=== PATIENT | female | born 1960 | race Native Hawaiian/Other Pacific Islander ===

== ENCOUNTER 2017-04-20 13:02 | Emergency (ER) | payer OTHER ==
[~2017-04-20] VITALS: Ht 165.1 cm; Wt 77.1 kg
[2017-04-20 13:42] LABS: POTASSIUM 3.8 mmol/L (3.6-5.2); SODIUM 135 mmol/L (136-145)
[2017-04-20 13:46] LABS: PLATELET COUNT 329 K/uL (152-353)
[2017-04-20 19:31] VITALS: BP 139/71; TEMP 98.4
== END 2017-04-20 19:30 | disposition home or self-care (01) ==
LOC: ED 13:02
DX: K21.0 Gastro-esophageal reflux disease with esophagitis (principal)
CPT/HCPCS: 36415; 80053; 82150; 83690; 85027; 99283

== ENCOUNTER 2018-08-22 12:49 | Emergency (ER) | payer OTHER ==
[~2018-08-22] VITALS: Ht 165.1 cm; Wt 80.7 kg
[2018-08-22 13:00] VITALS: BP 109/70; TEMP 98.1
== END 2018-08-22 14:32 | disposition home or self-care (01) ==
LOC: ED 12:49
DX: T63.391A Toxic effect of venom of other spider, accidental (unintentional), initial encounter (principal); Y92.89 Other specified places as the place of occurrence of the external cause
CPT/HCPCS: 90471; 90715; 96372; 99283; J2930

== ENCOUNTER 2018-08-29 09:47 | Outpatient (CLI) | payer OTHER | END 2018-08-29 23:40 | disposition home or self-care (01) | LOC: RESP 09:47 → RAD 09:47 → RESP 10:00 | DX: R06.02 Shortness of breath (principal) | CPT/HCPCS: 94664 ==

== ENCOUNTER 2018-08-31 11:32 | Emergency (ER) | payer OTHER ==
[~2018-08-31] VITALS: Ht 165.1 cm; Wt 77.1 kg
[2018-08-31 12:32] LABS: PLATELET COUNT 340 K/uL (152-353)
[2018-08-31 12:39] LABS: POTASSIUM 4.2 mmol/L (3.6-5.2)
[2018-08-31 16:05] VITALS: BP 106/59; TEMP 98.7
== END 2018-08-31 16:05 | disposition home or self-care (01) ==
LOC: ED 11:32
PROVIDERS: Family Medicine
DX: J06.9 Acute upper respiratory infection, unspecified (principal)
CPT/HCPCS: 36415; 80053; 81000; 85027; 96365; 99284; J0696

== ENCOUNTER 2018-10-06 10:17 | Outpatient (CLI) | payer OTHER | END 2018-10-06 19:40 | disposition home or self-care (01) | LOC: US 10:17 | DX: R10.11 Right upper quadrant pain (principal) ==

== ENCOUNTER 2018-11-20 09:43 | Outpatient (CLI) | payer OTHER | END 2018-11-20 22:58 | disposition home or self-care (01) | LOC: CT 09:43 | DX: R14.0 Abdominal distension (gaseous) (principal) | CPT/HCPCS: 36415; 82565; 84520; Q9963 ==

== ENCOUNTER 2019-01-02 07:17 | Day surgery (SDC) | payer OTHER ==
[~2019-01-02] VITALS: Ht 154.9 cm; Wt 68.0 kg
[2019-01-02 08:42] LABS: PLATELET COUNT 335 K/uL (152-353)
[2019-01-02 08:52] LABS: POTASSIUM 5.4 mmol/L (3.6-5.2)
== END 2019-01-02 11:07 | disposition home or self-care (01) ==
LOC: OR 07:17
PROVIDERS: Student in an Organized Health Care Education/Training Program
PROC: 0DBN8ZZ Excision of Sigmoid Colon, Via Natural or Artificial Opening Endoscopic (ICD-10-PCS; principal; 2019-01-02)
DX: K63.5 Polyp of colon (principal); Z12.11 Encounter for screening for malignant neoplasm of colon; R10.84 Generalized abdominal pain; K59.09 Other constipation; J44.9 Chronic obstructive pulmonary disease, unspecified
CPT/HCPCS: 80053; 85027; 94664; J2001; J2250; J2405; J2704

== ENCOUNTER 2019-02-06 09:52 | Outpatient (CLI) | payer OTHER | END 2019-02-06 19:45 | disposition home or self-care (01) | LOC: RAD 09:52 | DX: M81.0 Age-related osteoporosis without current pathological fracture (principal) ==

== ENCOUNTER 2019-02-13 07:36 | Day surgery (SDC) | payer OTHER ==
[2019-02-13 08:29] LABS: POTASSIUM 3.7 mmol/L (3.6-5.2)
== END 2019-02-13 10:22 | disposition home or self-care (01) ==
LOC: OR 07:36
PROVIDERS: Student in an Organized Health Care Education/Training Program
PROC: 0DB48ZZ Excision of Esophagogastric Junction, Via Natural or Artificial Opening Endoscopic (ICD-10-PCS; principal; 2019-02-13)
PROC: 0DB68ZZ Excision of Stomach, Via Natural or Artificial Opening Endoscopic (ICD-10-PCS; 2019-02-13)
PROC: 0D758ZZ Dilation of Esophagus, Via Natural or Artificial Opening Endoscopic (ICD-10-PCS; 2019-02-13)
DX: K29.50 Unspecified chronic gastritis without bleeding (principal); B96.81 Helicobacter pylori [H. pylori] as the cause of diseases classified elsewhere; K44.9 Diaphragmatic hernia without obstruction or gangrene; K21.9 Gastro-esophageal reflux disease without esophagitis; K22.2 Esophageal obstruction
CPT/HCPCS: 80053; J2001; J2250; J2405; J2704

== ENCOUNTER 2019-03-14 11:12 | Outpatient (CLI) | payer OTHER | END 2019-03-14 22:18 | disposition home or self-care (01) | LOC: LAB 11:12 | DX: K21.9 Gastro-esophageal reflux disease without esophagitis (principal) | CPT/HCPCS: 87338 ==

== ENCOUNTER 2019-03-18 13:42 | Emergency (ER) | payer OTHER ==
[~2019-03-18] VITALS: Ht 165.1 cm; Wt 72.6 kg
[2019-03-18 15:17] VITALS: BP 111/68; TEMP 98.2
== END 2019-03-18 15:17 | disposition home or self-care (01) ==
LOC: ED 13:42
DX: L50.8 Other urticaria (principal); T75.89XA Other specified effects of external causes, initial encounter; Y92.89 Other specified places as the place of occurrence of the external cause
CPT/HCPCS: 96372; 99283; J1200; J2930

== ENCOUNTER 2019-04-02 11:00 | Emergency (ER) | payer OTHER ==
[~2019-04-02] VITALS: Ht 165.1 cm; Wt 71.7 kg
[2019-04-02 11:10] VITALS: TEMP 98.6
[2019-04-02 13:16] VITALS: BP 114/67
== END 2019-04-02 13:16 | disposition home or self-care (01) ==
LOC: ED 11:00
DX: J44.1 Chronic obstructive pulmonary disease with (acute) exacerbation (principal); B34.9 Viral infection, unspecified
CPT/HCPCS: 94664; 99283

== ENCOUNTER → 2019-04-28 | Outpatient (CLI) | payer OTHER | LOC: LAB 11:30 | DX: Z86.19 Personal history of other infectious and parasitic diseases (principal) | CPT/HCPCS: 87206 ==

== ENCOUNTER 2019-04-29 11:54 | Outpatient (CLI) | payer OTHER | END 2019-04-29 20:11 | disposition home or self-care (01) | LOC: LAB 11:54 | DX: Z86.19 Personal history of other infectious and parasitic diseases (principal) | CPT/HCPCS: 87116; 87206 ==

== ENCOUNTER 2019-04-30 12:11 | Outpatient (CLI) | payer OTHER | END 2019-04-30 20:14 | disposition home or self-care (01) | LOC: LAB 12:11 | DX: Z86.19 Personal history of other infectious and parasitic diseases (principal) | CPT/HCPCS: 87206 ==

== ENCOUNTER 2019-05-20 10:29 | Emergency (ER) | payer OTHER ==
[~2019-05-20] VITALS: Ht 165.1 cm; Wt 71.7 kg
[2019-05-20 11:09] LABS: PLATELET COUNT 375 K/uL (152-353)
[2019-05-20 11:15] LABS: POTASSIUM 3.9 mmol/L (3.6-5.2)
[2019-05-20 11:22] LABS: PARTIAL THROMBOPLASTIN TIME 27.9 SECONDS (24.5-33.6)
[2019-05-20 12:40] VITALS: BP 136/74; TEMP 97.5
== END 2019-05-20 12:40 | disposition home or self-care (01) ==
LOC: ED 10:29
PROVIDERS: Hospitalist
DX: K44.9 Diaphragmatic hernia without obstruction or gangrene (principal); R10.84 Generalized abdominal pain
CPT/HCPCS: 80053; 81000; 81025; 85027; 85610; 85730; 96360; 96375; 99284; J1885; J2405

== ENCOUNTER 2019-07-03 09:52 | Outpatient (CLI) | payer OTHER | END 2019-07-03 22:28 | disposition home or self-care (01) | LOC: MAMMO 09:52 | DX: Z12.31 Encounter for screening mammogram for malignant neoplasm of breast (principal) ==

== ENCOUNTER 2019-07-07 11:13 | Emergency (ER) | payer OTHER ==
[~2019-07-07] VITALS: Ht 165.1 cm; Wt 71.7 kg
[2019-07-07 12:12] LABS: PLATELET COUNT 309 K/uL (152-353)
[2019-07-07 12:21] LABS: POTASSIUM 4.4 mmol/L (3.6-5.2)
[2019-07-07 13:31] VITALS: BP 135/86; TEMP 98.6
== END 2019-07-07 13:34 | disposition home or self-care (01) ==
LOC: ED 11:13
PROVIDERS: Emergency Medicine
DX: J44.1 Chronic obstructive pulmonary disease with (acute) exacerbation (principal)
CPT/HCPCS: 36415; 80053; 83735; 85027; 94664; 96365; 96375; 99284; J2930; J3475

== ENCOUNTER 2019-09-08 09:39 | Emergency (ER) | payer OTHER ==
[~2019-09-08] VITALS: Ht 165.1 cm; Wt 74.4 kg
[2019-09-08] MEDS ORDERED: AZIT250T3 PO (10:13)
[2019-09-08] MEDS ORDERED: PANTOPRAZOLE 40MG TA PO (10:14)
[2019-09-08] MEDS ORDERED: CALCIUM600 M1 PO (10:14)
[2019-09-08 10:52] VITALS: BP 134/69; TEMP 98
== END 2019-09-08 10:54 | disposition home or self-care (01) ==
LOC: ED 09:39
DX: S60.562A Insect bite (nonvenomous) of left hand, initial encounter (principal); L03.114 Cellulitis of left upper limb; L08.89 Other specified local infections of the skin and subcutaneous tissue; W57.XXXA Bitten or stung by nonvenomous insect and other nonvenomous arthropods, initial encounter; Y92.89 Other specified places as the place of occurrence of the external cause
CPT/HCPCS: 96372; 99282; J0696

== ENCOUNTER 2019-10-15 10:00 | Outpatient (CLI) | payer OTHER ==
[~2019-10-15 10:00] MED LIST: AZIT250T3 PO; CALCIUM600 M1 PO; PANTOPRAZOLE 40MG TA PO
== END 2019-10-15 19:13 | disposition home or self-care (01) ==
LOC: CT 10:00
DX: Z87.891 Personal history of nicotine dependence (principal); F17.210 Nicotine dependence, cigarettes, uncomplicated
CPT/HCPCS: G0297-TC

== ENCOUNTER 2020-05-07 07:56 | Outpatient (CLI) | payer OTHER | END 2020-05-07 23:15 | disposition home or self-care (01) | LOC: CT 07:56 | DX: Z87.898 Personal history of other specified conditions (principal); R91.8 Other nonspecific abnormal finding of lung field ==

== ENCOUNTER 2020-11-24 11:22 | Outpatient (CLI) | payer OTHER | END 2020-11-24 19:13 | disposition home or self-care (01) | LOC: RAD 11:22 | PROVIDERS: ATTEND Internal Medicine Sleep Medicine | DX: J44.1 Chronic obstructive pulmonary disease with (acute) exacerbation (principal) ==

== ENCOUNTER 2021-01-19 10:51 | Outpatient (CLI) | payer OTHER | END 2021-01-19 21:47 | disposition home or self-care (01) | LOC: MAMMO 10:51 | PROVIDERS: ATTEND Nurse Practitioner Family | DX: Z12.31 Encounter for screening mammogram for malignant neoplasm of breast (principal) ==

== ENCOUNTER 2021-02-02 08:53 | Outpatient (CLI) | payer OTHER | END 2021-02-02 12:00 | disposition home or self-care (01) | LOC: RESP 08:53 | PROVIDERS: ATTEND Internal Medicine Sleep Medicine | DX: J44.9 Chronic obstructive pulmonary disease, unspecified (principal) | CPT/HCPCS: 94640; 94664 ==

== ENCOUNTER 2021-02-11 10:01 | Outpatient (CLI) | payer OTHER ==
[2021-02-18 14:20] LABS: POTASSIUM 4.2 mmol/L (3.6-5.2)
[2021-02-18 14:22] LABS: PLATELET COUNT 299 K/uL (152-353)
== END 2021-02-11 23:59 | disposition home or self-care (01) ==
LOC: LABW 10:01
PROVIDERS: ATTEND Internal Medicine Cardiovascular Disease
DX: E78.5 Hyperlipidemia, unspecified (principal); Z79.01 Long term (current) use of anticoagulants
CPT/HCPCS: 36415; 80048; 80061; 80076; 85027

== ENCOUNTER 2021-02-18 23:40 | Inpatient (IN) | payer OTHER ==
[~2021-02-18] VITALS: Ht 165.1 cm; Wt 82.7 kg
[2021-02-18 23:49] VITALS: BP 123/68; TEMP 98.3
[2021-02-19] VITALS (9 sets, daily range): BP systolic 106–136; BP diastolic 60–71; TEMP 97.8–98.1; Ht 165.1 cm; Wt 82.7 kg
[2021-02-19 00:02] LABS: PLATELET COUNT 283 K/uL (152-353)
[2021-02-19 00:17] LABS: POTASSIUM 3.8 mmol/L (3.6-5.2); SODIUM 143 mmol/L (136-145)
[2021-02-19 00:22] LABS: PARTIAL THROMBOPLASTIN TIME 24.6 SECONDS (24.5-33.6)
--- NOTE | 2021-02-19 00:54 | NUR ---
PT. ARRIVED TO [facility] FLOOR FROM THE ER VIA STRETCHER WITH 3L NC INTACT AT THIS TIME. PT. IS ALERT AND ORIENTED TIMES FOUR AND RESPONSIVE TO VERBAL STIMULI. PT. HAS A 20G TO LEFT WRIST. NO SIGNS OF ERRYTHEMA, EDEMA OR INFILTRATION. PT. DIAGNOSED WITH COPD EXACERBATION AND SMOKE INHALATION. PT. ADJUSTED INTO A HIGH-FOWLERS POSITION WITH SIDE RAILS UP TIMES TWO WITH BED IN LOWEST POSITION AND CALL LIGHT WITHIN REACH. SKIN WARM AND DRY AND PT. SHOWS NO S/S OF ACUTE DISTRESS AT THIS TIME. PT. VITALS ARE FOLLOWS: TEMP: 97.8, HR-59, RESP-19, BP-136/77 AND SATTING 93%. WILL CONTINUE TO MONITOR.
--- NOTE | 2021-02-19 02:55 | NUR ---
IN PT'S ROOM AT THIS TIME. PT SEEMS TO BE IN NO DISTRESS AT THIS TIME. PT. ON 3L NC THAT IS INTACT. NS @ 150 IS INFUSING ALONG WITH IVPB ZITHROMYCIN. PT. IN A HIGH-FOWLERS POSITION WITH SIDE RAILS UP TIMES TWO WITH BED IN LOWEST POSITION. BELONGINGS BY PT'S SIDE AT THIS TIME. TELEMETRY #6 ON PT AT THIS TIME. PT. ON CONTINOUS PULSE OXIMETRY WELL.
[2021-02-19] MEDS ORDERED: TRELEGY ELLIPTA1 AER PO (03:15)
[2021-02-19] MEDS ORDERED: PROAIR HFA PO (03:17)
--- NOTE | 2021-02-19 14:10 | NUR ---
02/19/21 1400 RESP PRESENT IN ROOM WITH PATIENT FOR WALK TEST.CC
--- NOTE | 2021-02-19 15:07 | NUR ---
02/19/21 7837 NOTIFIED OF RESP WALKING PT FOR 30 MINUTES SAT NO LOWER THAN 93 PERCENT.BUT WAS SHORT OF BREATH.RESP PLACED OXYGEN BACK ON PT WENT UP TO 95 PERCENT.NO NEW ORDERS AT THIS TIME.CC
--- NOTE | 2021-02-19 16:00 | NUR ---
VITALS: BP: 130/62, P104, R19, T98.1, SPO2 97% ON 3LPM NC
--- NOTE | 2021-02-19 19:45 | NUR ---
PT. SITTING UP IN BED IN A HIGH-FOWLERS POSITION WITH SIDE RAILS UP TIMES TWO WITH BED IN LOWEST POSITION WITH CALL LIGHT WITHIN REACH AT THIS TIME. 3LPM NC INTACT. NO S/S OF ACUTE DISTRESS NOTED AND NO FURTHER ACUTE CHANGES NOTED OR OBSERVED AT THIS TIME.
--- NOTE | 2021-02-19 20:02 | NUR ---
02/19/21 1600 VS 98.1 104 19 130/62 SAT 97 PERCENT.
--- NOTE | 2021-02-19 23:00 | NUR ---
CARDIAC ENZYMES ARE PT. ARE NEGATIVE AT THIS TIME.
--- NOTE | 2021-02-20 02:46 | NUR ---
IN TO GIVE PT ZITHROMAX 500 MG AT THIS TIME. PT WAS RESTING UP0N ENTERING THE ROOM IN A LOW-FOWLERS POSITION WITH SIDE RAILS UP TIMES TWO WITH BED IN LOWEST POSITION WITH CALL LIGHT WITHIN REACH. WILL MONITOR ANY ACUTE CHANGES AT THIS TIME.
[2021-02-20 04:00] VITALS: BP 117/52; TEMP 97.4
[2021-02-20 08:00] VITALS: BP 124/52; TEMP 97.8
[2021-02-20] MEDS ORDERED: LEVAQUIN 500MG TAB PO (11:42)
[2021-02-20] MEDS ORDERED: PRED10TA27 PO (11:50)
[2021-02-20 12:00] VITALS: BP 152/52; TEMP 98.1
--- NOTE | 2021-02-20 13:04 | NUR ---
REFERRAL FOR HOME, PORTABLE OXYGEN , AND TRILOGY WAS SENT TO [facility]. PATIENT IS ALREADY EXSTABLISHED WITH THIS COMPANY FOR HER NEBULIZER AND SUPPLIES.
--- NOTE | 2021-02-20 15:30 | NUR ---
DR. CHARLTON AT BEDSIDE.
--- NOTE | 2021-02-20 16:30 | NUR ---
PT IV DC'D TIP INTACT NO REDNESS OR SWELLING NOTED. PT TELEMETRY DC'D. PT GIVEN DISCHARGE INSTRUCTIONS. EXPLAINED TO PT TO CON'T TAKING THE LEVAQUIN ONE TAB DAILY EVERY MORNING FOR THE NEXT 5 DAYS, PREDNISONE TAPER DOSE TO TAKE DIRECTED. CON'T AZITHROMYCIN SCHEDULED PRIOR TO ADMISSION. FOLLOW UP WITH PCP IN 5-7 DAYS. KEEP F/U WITH DR. COLVIN. PT VERBALIZES UNDERSTANDING AT THIS TIME. PT DISCHARGED VIA W/C WITH HOME O2.
== END 2021-02-20 16:30 | disposition home or self-care (01) | DRG 191 ==
LOC: ED 23:40 → MED/SURG 02-19 00:30
PROVIDERS: ADMIT Hospitalist; ATTEND Internal Medicine
DX: J44.1 Chronic obstructive pulmonary disease with (acute) exacerbation (principal); G45.8 Other transient cerebral ischemic attacks and related syndromes; T59.811A Toxic effect of smoke, accidental (unintentional), initial encounter; J70.5 Respiratory conditions due to smoke inhalation; K21.9 Gastro-esophageal reflux disease without esophagitis
CPT/HCPCS: 36415; 36600; 80053; 82550; 82805; 83880; 84484; 85027; 85610; 85730; 87635; 93005; 94640; 94664; 94760; 96374; 99284; J0456; J1650; J2405; J2930; J3490; U0003

== ENCOUNTER 2021-05-02 08:32 | Emergency (ER) | payer OTHER ==
[~2021-05-02] VITALS: Ht 165.1 cm; Wt 82.6 kg
[~2021-05-02 08:32] MED LIST changes: +LEVAQUIN 500MG TAB PO; +PRED10TA27 PO; +PROAIR HFA PO; +TRELEGY ELLIPTA1 AER PO
[2021-05-02 10:38] LABS: POTASSIUM 4.7 mmol/L (3.6-5.2)
[2021-05-02 10:39] LABS: PLATELET COUNT 400 K/uL (152-353)
[2021-05-02 14:04] VITALS: BP 104/55; TEMP 98.1
== END 2021-05-02 14:05 | disposition short-term general hospital (02) ==
LOC: ED 08:32
PROVIDERS: Emergency Medicine
DX: K35.890 Other acute appendicitis without perforation or gangrene (principal); K59.09 Other constipation; Z11.52 Encounter for screening for COVID-19
CPT/HCPCS: 36415; 51702; 80053; 82150; 83690; 85007; 85027; 87635; 94664; 96365; 96374; 96375; 96376; 99284; J0696; J1885; J2175; J2405; Q9963; U0003

== ENCOUNTER 2022-02-23 12:52 | Outpatient (CLI) | payer OTHER | END 2022-02-23 18:53 | disposition home or self-care (01) | LOC: RAD 12:52 | PROVIDERS: ATTEND Nurse Practitioner Family | DX: M06.4 Inflammatory polyarthropathy (principal); G90.09 Other idiopathic peripheral autonomic neuropathy ==

== ENCOUNTER 2022-06-14 13:27 | Outpatient (CLI) | payer OTHER | END 2022-06-14 19:35 | disposition home or self-care (01) | LOC: MAMMO 13:27 | PROVIDERS: ATTEND Nurse Practitioner Family | DX: Z12.31 Encounter for screening mammogram for malignant neoplasm of breast (principal); G56.03 Carpal tunnel syndrome, bilateral upper limbs; M47.892 Other spondylosis, cervical region; M46.02 Spinal enthesopathy, cervical region; M50.320 Other cervical disc degeneration, mid-cervical region, unspecified level ==

== ENCOUNTER 2022-07-15 12:39 | Outpatient (CLI) | payer OTHER | END 2022-07-15 19:05 | disposition home or self-care (01) | LOC: RAD 12:39 | PROVIDERS: ATTEND Nurse Practitioner Family | DX: J44.1 Chronic obstructive pulmonary disease with (acute) exacerbation (principal) ==

== ENCOUNTER 2023-01-11 15:42 | Outpatient (CLI) | payer OTHER | END 2023-01-11 19:44 | LOC: RAD 15:42 | PROVIDERS: ATTEND Nurse Practitioner Family | DX: J44.1 Chronic obstructive pulmonary disease with (acute) exacerbation (principal) ==

== ENCOUNTER 2023-01-24 10:18 | Outpatient (CLI) | payer OTHER | END 2023-01-24 20:01 | disposition home or self-care (01) | LOC: CT 10:18 | PROVIDERS: ATTEND Internal Medicine Sleep Medicine | DX: J43.2 Centrilobular emphysema (principal); Z87.891 Personal history of nicotine dependence; Z09 Encounter for follow-up examination after completed treatment for conditions other than malignant neoplasm ==